=== PATIENT | female | born 1945 | race Caucasian/White ===

== ENCOUNTER → 2016-06-08 | Outpatient (CLI) | payer MEDICARE, OTHER ==
[~2016-06-08] MED LIST: AFINITOR10 MG PO; ARIMIDEX 1 MG TA1 MG PO; ASPIR 8181 MG PO; CALCIUM + VITA1 EACH PO; FERROUS SULFAT325 MG PO; FISH OIL 1,0001 EAC1 PO; FOLIC ACID 1 MG1 MG PO; FOSAMAX70 MG PO; LOSARTAN POTAS100 MG PO; LOVENOX SY40 MG/0.4 SC; NORVASC 5 MG TAB5 MG PO; PHENERGAN 25 MG25 M1 PO; PROTONIX40 MG PO; VITAMIN B-121000 MC3 PO
== END ==
LOC: ECHO 11:00
DX: C50.419 Malignant neoplasm of upper-outer quadrant of unspecified female breast (principal); C64.9 Malignant neoplasm of unspecified kidney, except renal pelvis; I51.7 Cardiomegaly
CPT/HCPCS: ECHO; 93005; 93306

== ENCOUNTER → 2016-06-30 | Outpatient (CLI) | payer MEDICARE, OTHER | LOC: KOH-I 12:08 | DX: C50.419 Malignant neoplasm of upper-outer quadrant of unspecified female breast (principal); K57.30 Diverticulosis of large intestine without perforation or abscess without bleeding; Z90.5 Acquired absence of kidney; Z90.89 Acquired absence of other organs | CPT/HCPCS: 74176 ==

== ENCOUNTER → 2016-08-11 | Outpatient (CLI) | payer MEDICARE, OTHER ==
[2016-08-11 11:53] LABS: URINE CREATININE 34.1 mg/dL
== END ==
LOC: LAB 09:07
PROVIDERS: Internal Medicine Nephrology
DX: N18.3 Chronic kidney disease, stage 3 (moderate) (principal)
CPT/HCPCS: 36415; 80053; 82565; 82570; 82575; 83970; 84100

== ENCOUNTER → 2016-10-31 | Outpatient (CLI) | payer MEDICARE, OTHER | LOC: LAB 10:44 | PROVIDERS: Internal Medicine Infectious Disease | DX: K85.10 Biliary acute pancreatitis without necrosis or infection (principal) | CPT/HCPCS: 36415; 80053; 83690 ==